=== PATIENT | female | born 1965 | race Caucasian/White ===

== ENCOUNTER 2019-08-21 09:40 | Emergency (ER) | payer BC, OTHER ==
[~2019-08-21] VITALS: Ht 160 cm; Wt 118.0 kg
[2019-08-21] MEDS ORDERED: ALBUTEROL/IPRATROPIUM 2.5MG/0.5MG, 3 ML ONE (10:49)
[2019-08-21] MEDS ORDERED: ALBUTEROL/IPRATROPIUM 2.5MG/0.5MG, 3 ML NPPB ONE (11:00)
[2019-08-21] MEDS ORDERED: SODIUM CHLORIDE FLUSH 10ML SYR IVF ONE (11:00)
[2019-08-21 11:24] LABS: BASOPHILS # (AUTO) 0.03 x10^3/uL (0-0.1); BASOPHILS % (AUTO) 0 % (0-1); EOSINOPHILS # (AUTO) 0.17 x10^3/uL (0-0.4); EOSINOPHILS % (AUTO) 2 % (1-7); LYMPHOCYTES # (AUTO) 1.27 x10^3/uL (1-3.4); LYMPHOCYTES % (AUTO) 15 % (22-44); MD NO; MEAN CORPUSCULAR HEMOGLOBIN 34.1 pg (27.0-34.8); MEAN CORPUSCULAR HGB CONC 32.9 g/dL (32.4-35.8); MEAN CORPUSCULAR VOLUME 103.5 fL (80-100); MONOCYTES # (AUTO) 1.19 x10^3/uL (0.2-0.8); MONOCYTES % (AUTO) 14 % (2-9); NEUTROPHILS # (AUTO) 5.94 x10^3/uL (1.8-6.8); NEUTROPHILS % (AUTO) 69 % (42-75); PLATELET COUNT 233 x10^3/uL (130-400); RED BLOOD COUNT 3.77 x10^6/uL (3.82-5.3); RED CELL DISTRIBUTION WIDTH 13.4 % (9.6-15.2)
[2019-08-21 11:38] LABS: ALANINE AMINOTRANSFERASE 29 U/L (12-78); ALBUMIN 3.6 g/dL (3.4-5.0); ANION GAP 10 mmol/L (5-15); CALCIUM 8.4 mg/dL (8.5-10.1); CHLORIDE 108 mmol/L (98-107); CREATININE 4.29 mg/dL (0.55-1.02)
[2019-08-21 11:42] LABS: ALKALINE PHOSPHATASE 68 U/L (45-117); BILIRUBIN,TOTAL 0.3 mg/dL (0.2-1.0); TROPONIN I < 0.015 ng/mL (0.000-0.045)
[2019-08-21 12:17] VITALS: BP 150/92
[2019-08-21] MEDS ORDERED: BENZONATATE 100 MG CAPSULE ONE (12:28)
[2019-08-21] MEDS ORDERED: DEXAMETHASONE 4 MG TABLET ONE (12:28)
[2019-08-21] MEDS ORDERED: DEXAMETHASONE 4 MG TABLET PO ONE (12:30)
[2019-08-21] MEDS ORDERED: BENZONATATE 100 MG CAPSULE PO ONE (12:30)
[2019-08-21] MEDS ORDERED: SODIUM CHLORIDE 0.9% 1,000ML IVBOLUS ONE (12:30)
== END 2019-08-21 14:11 | disposition home or self-care (01) ==
LOC: ED 14:00
DX: I13.0 Hypertensive heart and chronic kidney disease with heart failure and stage 1 through stage 4 chronic kidney disease, or unspecified chronic kidney disease (principal); N18.3 Chronic kidney disease, stage 3 (moderate); I50.9 Heart failure, unspecified; R06.00 Dyspnea, unspecified; J44.9 Chronic obstructive pulmonary disease, unspecified; E03.9 Hypothyroidism, unspecified; Z87.891 Personal history of nicotine dependence
CPT/HCPCS: 36415; 71045; 80053; 83605; 83880; 84145; 84484; 85025; 87040; 93005; 94640; 99284; J7030; J7620

== ENCOUNTER → 2019-12-16 | Outpatient (CLI) | payer BC ==
[~2019-12-16] MED LIST: BENA10TA59 PO; CETI10CA PO; FLUT9.9S NS; FURO40TA6 PO; LEVO75TA PO; REGADENOSON 0.4 MG/5 ML SYRINGE ONE
== END | disposition home or self-care (01) ==
LOC: CVU 07:16
PROVIDERS: ATTEND Internal Medicine Cardiovascular Disease
DX: I05.8 Other rheumatic mitral valve diseases (principal); I13.0 Hypertensive heart and chronic kidney disease with heart failure and stage 1 through stage 4 chronic kidney disease, or unspecified chronic kidney disease; N18.4 Chronic kidney disease, stage 4 (severe); I50.9 Heart failure, unspecified
CPT/HCPCS: 93306; J2785

== ENCOUNTER 2020-01-16 11:06 | Day surgery (SDC) | payer BC ==
[~2020-01-16 11:06] MED LIST changes: -REGADENOSON 0.4 MG/5 ML SYRINGE ONE
[2020-01-16] MEDS ORDERED: LIDOCAINE 1%, 10ML ONE (11:57)
[2020-03-26] MEDS ORDERED: BENA10TA59 PO (09:38)
== END 2020-01-16 23:59 | disposition home or self-care (01) ==
LOC: RAD 11:06
PROVIDERS: ATTEND Nurse Practitioner
DX: Z45.2 Encounter for adjustment and management of vascular access device (principal)
CPT/HCPCS: 36589; 77001

== ENCOUNTER → 2020-03-26 | Outpatient (CLI) | payer BC ==
[2020-03-26 09:40] LABS: ALANINE AMINOTRANSFERASE 15 U/L (12-78); ALBUMIN 3.8 g/dL (3.4-5.0); ANION GAP 10 mmol/L (5-15); CALCIUM 9.4 mg/dL (8.5-10.1); CHLORIDE 102 mmol/L (98-107); CREATININE 4.24 mg/dL (0.55-1.02)
[2020-03-26 09:42] LABS: ALKALINE PHOSPHATASE 61 U/L (45-117); BASOPHILS # (AUTO) 0.06 x10^3/uL (0-0.1); BASOPHILS % (AUTO) 1 % (0-1); BILIRUBIN,TOTAL 0.2 mg/dL (0.2-1.0); EOSINOPHILS # (AUTO) 0.21 x10^3/uL (0-0.4); EOSINOPHILS % (AUTO) 2 % (1-7); LYMPHOCYTES # (AUTO) 2.02 x10^3/uL (1-3.4); LYMPHOCYTES % (AUTO) 23 % (22-44); MD NO; MEAN CORPUSCULAR HEMOGLOBIN 34.2 pg (27.0-34.8); MEAN CORPUSCULAR HGB CONC 32.9 g/dL (32.4-35.8); MONOCYTES # (AUTO) 0.78 x10^3/uL (0.2-0.8); MONOCYTES % (AUTO) 9 % (2-9); NEUTROPHILS % (AUTO) 65 % (42-75); PLATELET COUNT 240 x10^3/uL (130-400); RED BLOOD COUNT 3.23 x10^6/uL (3.82-5.3); RED CELL DISTRIBUTION WIDTH 15.3 % (9.6-15.2)
== END | disposition home or self-care (01) ==
LOC: STAR 08:30
PROVIDERS: ATTEND Surgery
DX: Z01.818 Encounter for other preprocedural examination (principal); I45.10 Unspecified right bundle-branch block
CPT/HCPCS: 36415; 80053; 85025; 93005

== ENCOUNTER 2020-03-30 13:40 | Day surgery (SDC) | payer BC ==
[~2020-03-30] VITALS: Ht 160 cm; Wt 114.3 kg
[2020-03-30] MEDS ORDERED: SODIUM CHLORIDE 0.9% 1,000 ML IV SCH (14:15)
[2020-03-30 14:16] VITALS: BP 168/98
[2020-03-30] MEDS ORDERED: CHLORHEXIDINE 15 ML UDC ONE (14:21)
[2020-03-30] MEDS ORDERED: LIDOCAINE-MPF 1%, 2ML ONE (14:21)
[2020-03-30] MEDS ORDERED: CHLORHEXIDINE 15 ML UDC MM ONE (14:30)
[2020-03-30 14:54] LABS: CHLORIDE 107 mmol/L (98-107)
[2020-03-30 15:02] LABS: ALANINE AMINOTRANSFERASE 15 U/L (12-78); ALBUMIN 3.9 g/dL (3.4-5.0); ALKALINE PHOSPHATASE 71 U/L (45-117); ANION GAP 10 mmol/L (5-15); BILIRUBIN,TOTAL 0.4 mg/dL (0.2-1.0); CALCIUM 9.4 mg/dL (8.5-10.1); CREATININE 6.74 mg/dL (0.55-1.02); TOTAL PROTEIN 8.2 g/dL (6.4-8.2)
[2020-03-30] MEDS ORDERED: HEPARIN 1,000 UNITS/ML, 10ML ONE (17:20)
[2020-03-30] MEDS ORDERED: PROTAMINE SULFATE 10 MG/ML, 5ML ONE (17:20)
[2020-03-30] MEDS ORDERED: BUPIVACAINE/PF-EPI 0.5% 1:200K ONE (17:20)
[2020-03-30] MEDS ORDERED: MIDAZOLAM 1 MG/ML, 2ML ONE (17:38)
[2020-03-30] MEDS ORDERED: FENTANYL PF 250 MCG/5ML ONE (17:42)
[2020-03-30] MEDS ORDERED: LIDOCAINE PF 2%, 5ML ONE (17:45)
[2020-03-30] MEDS ORDERED: PHENYLEPHRINE 10 MG/ML ONE (17:45)
[2020-03-30] MEDS ORDERED: OXYcodone 5 MG/5 ML ORAL.SOL UDC PO PRN (18:00)
[2020-03-30] MEDS ORDERED: ONDANSETRON 2MG/ML, 2ML IVPush PRN ×2 (18:00→20:00)
[2020-03-30] MEDS ORDERED: FENTANYL PF 100 MCG/2ML IV PRN (18:00)
[2020-03-30] MEDS ORDERED: morphine SULFATE 10 MG/ML, 1ML IVPush PRN (18:00)
[2020-03-30] MEDS ORDERED: PROMETHAZINE 25 MG SUPP PR PRN (18:00)
[2020-03-30] MEDS ORDERED: LABETALOL 5MG/ML, 20ML IV PRN (18:00)
[2020-03-30] MEDS ORDERED: ACETAMINOPHEN 325 MG TABLET PO PRN (18:00)
[2020-03-30] MEDS ORDERED: PROMETHAZINE 25 MG/ML, 1ML IVPush PRN (18:00)
[2020-03-30] MEDS ORDERED: hydrALAzine 20 MG/ML, 1ML IV PRN (18:00)
[2020-03-30] MEDS ORDERED: DEXAMETHASONE 4 MG/ML, 1ML ONE (18:51)
[2020-03-30] MEDS ORDERED: PROPOFOL 10 MG/ML, 20ML ONE (18:51)
[2020-03-30] MEDS ORDERED: SUCCINYLCHOLINE 20 MG/ML, 10ML ONE (18:51)
[2020-03-30] MEDS ORDERED: CEFAZOLIN 1,000 MG ONE (18:51)
[2020-03-30] MEDS ORDERED: NEOSTIGMINE 1 MG/ML, 10ML ONE (18:51)
[2020-03-30] MEDS ORDERED: GLYCOPYRROLATE 0.2MG/1ML, 5ML ONE (18:51)
[2020-03-30] MEDS ORDERED: ONDANSETRON 2MG/ML, 2ML ONE (18:51)
[2020-03-30] MEDS ORDERED: ROCURONIUM 10MG/ML,5ML ONE (18:51)
[2020-03-30] MEDS ORDERED: SUGAMMADEX 200 MG/2 ML IVPush ONE (18:51)
[2020-03-30] MEDS ORDERED: MORPHINE SULFATE 4 MG/ML, 1ML IVPush PRN (20:00)
[2020-03-30] MEDS ORDERED: DIPHENHYDRAMINE 50 MG/ML, 1ML IVPush PRN (20:00)
[2020-03-30] MEDS ORDERED: HYDROcodone/APAP 5/325 TABLET PO PRN (20:00)
[2020-03-30] MEDS ORDERED: HEPARIN 5,000 UNITS/ML, 1ML SQ SCH ×2 (20:00)
[2020-03-30] MEDS ORDERED: LACTATED RINGERS 1,000 ML IV SCH (20:00)
[2020-03-30] MEDS ORDERED: HYDR-3240 PO (21:14)
== END 2020-03-30 22:10 | disposition home or self-care (01) ==
LOC: OR 13:40 → 4NE 19:45 → OR 22:10
PROVIDERS: ATTEND Surgery
DX: N18.6 End stage renal disease (principal); Z11.59 Encounter for screening for other viral diseases; I12.0 Hypertensive chronic kidney disease with stage 5 chronic kidney disease or end stage renal disease; E03.9 Hypothyroidism, unspecified; J44.9 Chronic obstructive pulmonary disease, unspecified; K21.9 Gastro-esophageal reflux disease without esophagitis; E66.9 Obesity, unspecified; Z68.41 Body mass index [BMI] 40.0-44.9, adult; Z79.890 Hormone replacement therapy; Z79.899 Other long term (current) drug therapy; Z87.891 Personal history of nicotine dependence; Z88.2 Allergy status to sulfonamides; Z88.5 Allergy status to narcotic agent; Z88.8 Allergy status to other drugs, medicaments and biological substances; Z90.49 Acquired absence of other specified parts of digestive tract; Z90.710 Acquired absence of both cervix and uterus; Z96.651 Presence of right artificial knee joint; Z98.890 Other specified postprocedural states; Z83.3 Family history of diabetes mellitus; Z82.49 Family history of ischemic heart disease and other diseases of the circulatory system; Z82.61 Family history of arthritis; Z80.0 Family history of malignant neoplasm of digestive organs
CPT/HCPCS: 36415; 36821; 49324; 80053; C1751; J0330; J0690; J1100; J1644; J2250; J2370; J2405; J2704; J2710; J2720; J3010; J7030; U0001; G0378